=== PATIENT | female | born 1970 | race Caucasian/White ===

== ENCOUNTER 2017-10-20 21:11 | Emergency (ER) | payer MEDICAID ==
[~2017-10-20] VITALS: Ht 154.9 cm; Wt 44.0 kg
[2017-10-20 21:17] VITALS: BP 136/80
[2017-10-20] MEDS ORDERED: LIDOCAINE-MPF 1%, 5ML INFIL ONE (21:30)
[2017-10-20] MEDS ORDERED: LIDOCAINE-MPF 1%, 5ML ONE (22:11)
[2017-10-20] MEDS ORDERED: HYDROcodone/APAP 5/325 TABLET ONE (23:27)
[2017-10-20] MEDS ORDERED: HYDROcodone/APAP 5/325 TABLET PO ONE (23:30)
== END 2017-10-20 23:38 | disposition home or self-care (01) ==
LOC: ED 23:33
DX: L03.811 Cellulitis of head [any part, except face] (principal)
CPT/HCPCS: 10060; 99283